=== PATIENT | female | born 1970 | race African-American/Black ===

== ENCOUNTER 2024-10-02 20:57 | Emergency (ER) | payer SELFPAY ==
[~2024-10-02] VITALS: Ht 172.7 cm; Wt 91.0 kg
[2024-10-02 20:59] VITALS: O2SAT 99
[2024-10-02] MEDS: DEXAMETHASONE 10 MG/ML VIAL IV ONE (22:38)
[2024-10-02] MEDS: FAMOTIDINE 20MG/2ML VIAL IV ONE (22:38)
[2024-10-02] MEDS: DIPHENHYDRAMINE 50MG/ML VIAL IV ONE (22:38)
[2024-10-02 22:44] VITALS: BP 131/85; PULSE 63; RESP 13; TEMP 36.8; O2SAT 98
[2024-10-02] MEDS ORDERED: PRED10TA MT (22:46)
[2024-10-02] MEDS ORDERED: EPIN0.3P3 IM (22:46)
== END 2024-10-02 23:12 | disposition home or self-care (01) ==
LOC: ER 20:57
DX: T78.40XA Allergy, unspecified, initial encounter (principal); E11.9 Type 2 diabetes mellitus without complications; X58.XXXA Exposure to other specified factors, initial encounter
CPT/HCPCS: 99284; 96374; 96375; J1100; J1200; J1308; A4606